=== PATIENT | female | born 1945 | race Caucasian/White ===

== ENCOUNTER → 2018-05-03 | Day surgery (SDC) | payer OTHER, MEDICARE ==
--- NOTE | 2018-05-03 11:52 | RAD REPORT ---
EXAM DESCRIPTION: US - Guided FNA Non Breast - 05/03/2018 10:32 am CLINICAL HISTORY: Thyroid nodule ICD E 04.2 COMPARISON: December 2017 FINDINGS: Risks, benefits and alternatives to the procedure were explained to the patient and inform ed consent obtained The skin and subcutaneous tissues anesthetized with lidocaine. Under sonographic guidance, five 25 gauge needle passes were obtained into the dominant nodule within the right lobe of the thyroid gland. Additionally several cc of brownish fluid was aspirated. Material given to pathology. The patient experienced no immediate complication IMPRESSION: Fine-needle aspiration of a dominant nodule within the right lobe of the thyroid gland
== END ==
LOC: FNA 09:45
PROVIDERS: ATTEND Otolaryngology
PROC: 0G9H3ZX Drainage of Right Thyroid Gland Lobe, Percutaneous Approach, Diagnostic (ICD-10-PCS; principal; 2018-05-03)
PROC: BG44ZZZ Ultrasonography of Thyroid Gland (ICD-10-PCS; 2018-05-03)
DX: E04.2 Nontoxic multinodular goiter (principal)
CPT/HCPCS: 88162

== ENCOUNTER 2020-06-28 15:35 | Emergency (ER) | payer OTHER, MEDICARE ==
--- NOTE | 2020-06-28 19:28 | RAD REPORT ---
EXAM DESCRIPTION: RAD - Chest Single View - 06/28/2020 7:09 pm CLINICAL HISTORY: Dyspnea;Cough Chest pain. COMPARISON: CHEST PA AND LAT 2 VIEW dated 10/05/2015 FINDINGS: Portable technique limits examination quality. The lungs are grossly clear. The heart is normal in size. No displaced fractures. IMPRESSION: No acute intrathoracic process suspected.
[2020-06-28] MEDS ORDERED: NA CHLORIDE 0.9% 1,000 ML ONE (19:32)
[2020-06-28] MEDS ORDERED: MORPHINE 4 MG/ML SYR ONE ×2 (19:32→21:23)
[2020-06-28] MEDS ORDERED: ONDANSETRON 4 MG/2 ML VIAL ONE (19:32)
[2020-06-28 19:37] LABS: Absolute Lymphocytes (CBC) 1.8 K/uL (0.7-4.9); Basophils % 0.8 % (0-1.3); Hematocrit 46.7 % (36.0-45.0); Lymphocytes % 27.5 % (15.3-44.8)
[2020-06-28 19:42] LABS: Protime INR 0.99
[2020-06-28 19:57] LABS: ALT/SGPT 30 U/L (12-78); AST/SGOT 18 U/L (15-37); Albumin 4.6 g/dL (3.4-5.0); Alkaline Phosphatase 66 U/L (45-117); BUN Blood Urea Nitrogen 15 mg/dL (7-18); Bicarbonate 29 mmol/L (21-32); Bilirubin Direct 0.2 mg/dL (0-0.2); Bilirubin Total 0.7 mg/dL (0.2-1.0); Glucose Level 103 mg/dL (74-106); Lipase 84 U/L (73-393); Magnesium 2.2 mg/dL (1.8-2.4); NT PRO-BNP 120 pg/mL (<125); Potassium 3.1 mmol/L (3.5-5.1); Protein, Total 9.3 g/dL (6.4-8.2); Sodium Level 136 mmol/L (136-145); Troponin (Emerg Dept Use Only) < 0.02 ng/mL (0.0-0.045)
--- NOTE | 2020-06-28 21:39 | RAD REPORT ---
EXAM DESCRIPTION: CT - Angio Aorta For Dissection - 06/28/2020 8:44 pm CLINICAL HISTORY: Chest pain radiating to the back. Cough;Pain COMPARISON: No comparisons TECHNIQUE: CT angiography of the aorta was performed with MIPs. All CT scans are performed using dose optimization technique as appropriate and may include automated exposure control or mA/KV adjustment according to patient size. FINDINGS: A left aortic arch is present with normal branching pattern of the great vessels.No acute aortic finding is seen such as aneurysm, penetrating ulcer or dissection. The celiac axis, SMA, BORA and renal arteries are patent. No evidence of pulmonary embolism. The lungs are clear. The liver demonstrates no focal mass or biliary dilatation.Cholelithiasis.The spleen, pancreas, adren al glands and kidneys are within normal limits for arterial phase imaging. No bowel obstruction, free fluid or abscess.Sigmoid diverticulosis coli without diverticulitis.No pat hologic enlarged lymphadenopathy identified. No fracture or worrisome bone lesion seen. 26 mm right thyroid lobe nodule. Tiny air bubble is present in urinary bladder. IMPRESSION: No acute aortic finding is demonstrated. Cholelithiasis. Tiny air bubble in the urinary bladder suggest urinalysis correlation. 26 mm right thyroid nodule.
--- NOTE | 2020-06-28 22:08 | ER ---
Nurse's Notes [facility] Name: Yamile Craig Age: 74 yrs Sex: Female : 1945 Arrival Date: 06/28/2020 Time: 15:40 Bed 15 Private MD: Sivakumar Hopper V Diagnosis: Zoster [herpes zoster] Presentation: 06/28 15:52 Chief complaint: Upper abdominal pain that radiates to left chest, left shoulder, and hb left upper back x 4 days. Pain is described as crampy or like a spasm. Coronavirus screen: At this time, the client does not indicate any symptoms associated with coronavirus-19. Ebola Screen: No symptoms or risks identified at this time. Initial Sepsis Screen: Does the patient meet any 2 criteria? No. Patient's initial sepsis screen is negative. Does the patient have a suspected source of infection? No. Patient's initial sepsis screen is negative. Risk Assessment: Do you want to hurt yourself or someone else? Patient reports no desire to harm self or others. Onset of symptoms was June 24, 2020. 15:52 Method Of Arrival: Ambulatory hb 15:52 Acuity: MADELINE 3 hb Historical: - Allergies: 15:54 No Known Allergies; hb - Immunization history:: Adult Immunizations up to date. - Social history:: Smoking status: Patient denies any tobacco usage or history of. Screenin:15 Abuse screen: Denies threats or abuse. Denies injuries from another. Nutritional aj1 screening: No deficits noted. Tuberculosis screening: No symptoms or risk factors identified. 22:33 Fall Risk None identified. aj1 Assessment: 17:42 Reassessment: Pt updated on delay in being seen by a provider. Pt does not appear to be dm5 upset at this time but reports that she is in pain and states that she understands. 19:01 Reassessment: LOGAN Musa at bedside to evaluate patient. aj1 19:02 Reassessment: Radiology at bedside to perform CXR. aj1 19:15 General: Appears in no apparent distress. comfortable, Behavior is calm, cooperative, aj1 appropriate for age. Pain: Complains of pain in back, chest and abdomen. Neuro: Level of Consciousness is awake, alert, obeys commands, Oriented to person, place, time, situation. Cardiovascular: Heart tones S1 S2 present Patient's skin is warm and dry. Respiratory: Airway is patent Respiratory effort is even, unlabored, Respiratory pattern is regular, symmetrical, Breath sounds are clear bilaterally. GI: Abdomen is non-distended, Bowel sounds present X 4 quads. Abd is soft and non tender X 4 quads. : No signs and/or symptoms were reported regarding the genitourinary system. EENT: No signs and/or symptoms were reported regarding the EENT system. Derm: No signs and/or symptoms reported regarding the dermatologic system. Skin is pink, warm \T\ dry. normal. Musculoskeletal: No signs and/or symptoms reported regarding the musculoskeletal system. Circulation, motion, and sensation intact. 20:07 Reassessment: Patient appears in no apparent distress at this time. No changes from aj1 previously documented assessment. Patient and/or family updated on plan of care and expected duration. Pain level reassessed. Patient is alert, oriented x 3, equal unlabored respirations, skin warm/dry/pink. 21:26 Reassessment: Patient appears in no apparent distress at this time. No changes from aj1 previously documented assessment. Patient and/or family updated on plan of care and expected duration. Pain level reassessed. Patient is alert, oriented x 3, equal unlabored respirations, skin warm/dry/pink. 22:33 Reassessment: Patient appears in no apparent distress at this time. No changes from aj1 previously documented assessment. Patient and/or family updated on plan of care and expected duration. Pain level reassessed. Patient is alert, oriented x 3, equal unlabored respirations, skin warm/dry/pink. Vital Signs: 15:52 BP 142 / 72; Pulse 85; Resp 16; Temp 97.2; Pulse Ox 100% on R/A; Pain 10/10; hb 20:00 BP 147 / 86; Pulse 96; Resp 20; Pulse Ox 100% on R/A; aj1 21:27 BP 138 / 72; Pulse 108; Resp 24; Pulse Ox 94% on R/A; aj1 22:33 BP 142 / 77; Pulse 98; Resp 20; Pulse Ox 95% on R/A; aj1 ED Course: 15:40 Patient arrived in ED. mr 15:40 Sivakumar Hopper MD is Private Physician. mr 15:54 Triage completed. hb 15:54 Arm band placed on right wrist. hb 18:25 Carroll Aquino MD is Attending Physician. angelia 18:34 Patsy Hill, RN is Primary Nurse. aj1 18:37 Luis Gu PA is PHCP. jmm 19:09 XRAY Chest (1 view) In Process Unspecified. EDMS 19:15 Patient maintains SpO2 saturation greater than 95% on room air. jp3 19:15 Initial lab(s) drawn, by me, sent to lab. First set of blood cultures drawn by me, Flu jp3 and/or RSV swab sent to lab. Inserted saline lock: 14 gauge in right antecubital area, using aseptic technique. Blood collected. 19:15 No provider procedures requiring assistance completed. aj1 19:25 Second set of blood cultures drawn by me, EKG done, by ED staff, reviewed by Luis FORD. 19:30 Placed in gown. Bed in low position. Call light in reach. Side rails up X 1. Warm jp3 blanket given. Verbal reassurance given. color television console monitor on. Pulse ox on. NIBP on. 20:44 CT Aorta for Dissection In Process Unspecified. EDMS 22:07 Sivakumar Hopper MD is Referral Physician. jmm 22:31 IV discontinued, intact, bleeding controlled, No redness/swelling at site. Pressure aj1 dressing applied. Administered Medications: 19:35 Drug: NS 0.9% 500 ml Route: IV; Rate: bolus; Site: right antecubital; jb4 22:31 Follow up: IV Status: Completed infusion; IV Intake: 500ml aj1 19:35 Drug: Zofran (Ondansetron) 4 mg Route: IVP; Site: right antecubital; jb4 22:30 Follow up: Response: No adverse reaction aj1 19:40 Drug: morphine 4 mg Route: IVP; Site: right antecubital; jb4 22:31 Follow up: Response: No adverse reaction aj1 20:16 Drug: NS 0.9% 1000 ml Route: IV; Rate: 125 ml/hr; Site: right antecubital; aj1 22:31 Follow up: IV Status: Completed infusion; IV Intake: 500ml aj1 21:13 Drug: morphine 4 mg Route: IVP; Site: right antecubital; aj1 22:30 Follow up: Response: No adverse reaction; Pain is decreased; RASS: Alert and Calm (0) aj1 Intake: 22:31 IV: 500ml; Total: 500ml. aj1 22:31 IV: 500ml; Total: 1000ml. aj1 Outcome: 22:07 Discharge ordered by . gabriel 22:34 Discharged to home ambulatory. aj1 22:34 Condition: good 22:34 Discharge instructions given to patient, Instructed on discharge instructions, follow up and referral plans. no drinking with medication, no driving heavy equipment, medication usage, Demonstrated understanding of instructions, follow-up care, medications, Prescriptions given X 3. 22:34 Patient left the ED. aj1 Signatures: Dispatcher [employer] EDMS Patsy Hill, RN RN aj1 Jessica Kinsey, RN RN dm5 Carroll Aquino MD MD cha Mickail, Joel, PA PA jmm Rivera, Mary mr Baxter, Heather, RN RN hb Bryson, James, RN RN jb4 Tex Savage jp3
--- NOTE | 2020-06-28 22:08 | EDPHYS ---
Physician Documentation [facility] Name: Yamile Craig Age: 74 yrs Sex: Female : 1945 Arrival Date: 06/28/2020 Time: 15:40 Bed 15 Private MD: Sivakumar Hopper V ED Physician Carroll Aquino HPI: 06/28 18:24 This 74 yrs old Female presents to ER via Ambulatory with complaints of Pain jmm All Over. 18:24 The patient or guardian reports chest pain that is located primarily in the anterior jmm chest wall, left. Onset: gradually, 4 day(s) ago. The pain radiates to left back. The chest pain is described as aching, a heaviness. Duration: The patient or guardian reports a single episode, that is still ongoing. Modifying factors: The symptoms are alleviated by nothing. the symptoms are aggravated by. This is a 74 year old female with a history of htn, hlp that presents to the ED with complaints of left sided chest pain which wraps around the left upper back. Pain has been constant for 4 days. Denies shortness of breath. . Historical: - Allergies: 15:54 No Known Allergies; hb - Immunization history:: Adult Immunizations up to date. - Social history:: Smoking status: Patient denies any tobacco usage or history of. ROS: 18:24 Constitutional: Negative for fever, chills, and weight loss. jmm 18:24 Cardiovascular: Positive for chest pain. 18:24 Abdomen/GI: Positive for abdominal pain. 18:24 Back: Positive for pain at rest. 18:24 All other systems are negative. Exam: 18:24 Constitutional: This is a well developed, well nourished patient who is awake, alert, jmm and in no acute distress. Head/Face: atraumatic. Eyes: EOMI, no conjunctival erythema appreciated ENT: Moist Mucus Membranes Neck: Trachea midline, Supple Chest/axilla: Normal chest wall appearance and motion. Cardiovascular: Regular rate and rhythm. No edema appreciated Respiratory: Normal respirations, no respiratory distress appreciated Abdomen/GI: Non distended, soft Back: Normal ROM 18:24 Skin: vesicular lesions on an erythematous base noted to the left upper thoracic region of the back. 18:24 Neuro: Orientation: is normal, Mentation: is normal, Memory: is normal. 18:24 Psych: Behavior/mood is pleasant, cooperative. Vital Signs: 15:52 BP 142 / 72; Pulse 85; Resp 16; Temp 97.2; Pulse Ox 100% on R/A; Pain 10/10; hb 20:00 BP 147 / 86; Pulse 96; Resp 20; Pulse Ox 100% on R/A; aj1 21:27 BP 138 / 72; Pulse 108; Resp 24; Pulse Ox 94% on R/A; aj1 22:33 BP 142 / 77; Pulse 98; Resp 20; Pulse Ox 95% on R/A; aj1 MDM: 18:25 Patient medically screened. angelia 21:45 Data reviewed: vital signs, nurses notes. ED course: Labs unremarkable. Pain has been jmm constant for 3 days with no elevated of troponin. Pain most likely due to herpes zoster. I do not suspect AMI at this time. Patient is advised to follow up with pcp and otherwise given strict return precautions. Patient understood and agrees with the plan of care. . 06/28 18:31 Order name: Basic Metabolic Panel; Complete Time: 20:08 [facility] 06/28 18:31 Order name: CBC with Diff; Complete Time: 20:08 [facility] 06/28 18:31 Order name: LFT's; Complete Time: 20:08 [facility] 06/28 18:31 Order name: Magnesium; Complete Time: 20:08 [facility] 06/28 18:31 Order name: NT PRO-BNP; Complete Time: 20:08 [facility] 06/28 18:31 Order name: PT-INR; Complete Time: 20:08 [facility] 06/28 18:31 Order name: Troponin (emerg Dept Use Only); Complete Time: 20:08 [facility] 06/28 18:31 Order name: XRAY Chest (1 view); Complete Time: 19:39 [facility] 06/28 18:31 Order name: Lipase; Complete Time: 20:08 [facility] 06/28 18:31 Order name: Blood Culture Adult (2) [facility] 06/28 18:31 Order name: Lactate; Complete Time: 20:08 [facility] 06/28 18:31 Order name: Flu; Complete Time: 20:08 [facility] 06/28 18:31 Order name: CT Aorta for Dissection; Complete Time: 21:42 [facility] 06/28 18:31 Order name: EKG; Complete Time: 18:32 [facility] 06/28 18:31 Order name: Cardiac monitoring; Complete Time: 19:31 [facility] 06/28 18:31 Order name: EKG - Nurse/Tech; Complete Time: 19:31 [facility] 06/28 18:31 Order name: IV Saline Lock; Complete Time: 19:31 [facility] 06/28 18:31 Order name: Labs collected and sent; Complete Time: 19:31 [facility] 06/28 18:31 Order name: O2 Per Protocol; Complete Time: : [facility] 06/28 18:31 Order name: O2 Sat Monitoring; Complete Time: 19:31 [facility] Administered Medications: 19:35 Drug: NS 0.9% 500 ml Route: IV; Rate: bolus; Site: right antecubital; jb4 22:31 Follow up: IV Status: Completed infusion; IV Intake: 500ml [facility] 19:35 Drug: Zofran (Ondansetron) 4 mg Route: IVP; Site: right antecubital; jb4 22:30 Follow up: Response: No adverse reaction [facility] 19:40 Drug: morphine 4 mg Route: IVP; Site: right antecubital; jb4 22:31 Follow up: Response: No adverse reaction [facility] 20:16 Drug: NS 0.9% 1000 ml Route: IV; Rate: 125 ml/hr; Site: right antecubital; aj1 22:31 Follow up: IV Status: Completed infusion; IV Intake: 500ml [facility] 21:13 Drug: morphine 4 mg Route: IVP; Site: right antecubital; aj1 22:30 Follow up: Response: No adverse reaction; Pain is decreased; RASS: Alert and Calm (0) [facility] Disposition: 06/29 09:02 Co-signature as Attending Physician, Carroll Aquino MD I agree with the assessment and [facility] plan of care. Disposition: 06/28/20 22:07 Discharged to Home. Impression: Zoster [herpes zoster]. - Condition is Stable. - Discharge Instructions: Shingles. - Prescriptions for Tylenol- Codeine #3 300-30 mg Oral Tablet - take 1 tablet by ORAL route every 6 hours As needed; 30 tablet. Valtrex 1 g Oral Tablet - take 1 tablet by ORAL route every 8 hours for 7 days; 21 tablet. Prednisone 20 mg Oral Tablet - take 3 tablet by ORAL route once daily for 5 days; 15 tablet. - Medication Reconciliation Form, Thank You Letter, Antibiotic Education, Prescription Opioid Use form. - Follow up: Sivakumar Hopper MD; When: 2 - 3 days; Reason: Recheck today's complaints, Continuance of care, Re-evaluation by your physician. Signatures: Dispatcher [employer] EDPatsy Douglas RN RN aj1 Carroll Aquino MD MD cha Mickail, Joel, PA PA jmm Baxter, Heather, RN RN hb Bryson, James, RN RN jb4 Corrections: (The following items were deleted from the chart) 06/28 22:34 22:07 06/28/2020 22:07 Discharged to Home. Impression: Zoster [herpes zoster]. aj1 Condition is Stable. Forms are Medication Reconciliation Form, Thank You Letter, Antibiotic Education, Prescription Opioid Use. Follow up: Sivakumar Hopper; When: 2 - 3 days; Reason: Recheck today's complaints, Continuance of care, Re-evaluation by your physician. gabriel
[2020-06-28 23:01] VITALS: TEMP 97.2
[2020-06-28 23:07] VITALS: BP 142/77; O2SAT 95
--- NOTE | 2020-06-29 07:23 | EKG ---
Test Date: 2020-06-28 Test Time: 19:37:41 Terrapin Fisher: BERNA MEASUREMENT RESULTS: Intervals: Rate: 96 OR: 148 QRSD: 94 QT: 404 QTc: 510 [place]: P: 68 OR: 148 QRS: 70 T: 35 INTERPRETIVE STATEMENTS: Normal sinus rhythm Prolonged QT Abnormal ECG Compared to ECG 06/16/2005 12:02:00 Prolonged QT interval now present Electronically Signed On 06-29-20 07:22:24 TRUCK TRAILER FINAL INSPECTOR by Neftali Gordon
== END 2020-06-28 22:34 | disposition home or self-care (01) ==
LOC: ER 15:35
DX: B02.9 Zoster without complications (principal)
CPT/HCPCS: 96361; 93005; 87040 ×2; 85025; 80048; 36415; 83735; 85610; 80076; 83605; 84484; 83690; 83880; 87804 ×2; 71275; 74175; 71045; 96375; 96374; 99285; Q9967; J7030; J2405

== ENCOUNTER 2022-09-21 10:40 | Day surgery (SDC) | payer OTHER, MEDICARE ==
--- NOTE | 2022-09-19 15:41 | RAD REPORT ---
EXAM DESCRIPTION: Rober Lala And Tabitha (2 Views)09/19/2022 3:34 pm CLINICAL HISTORY: Preop for an abdominal aortic gram COMPARISON: 2019 FINDINGS: The lungs appear clear of acute infiltrate. The heart is normal size IMPRESSION: No acute abnormalities displayed
[2022-09-19 15:44] LABS: Absolute Lymphocytes (CBC) 2.7 K/uL (0.7-4.9); Hematocrit 45.1 % (36.0-45.0); Lymphocytes % 43.1 % (15.3-44.8); MCV 94.8 fL (80-100); MPV 9.4 fL (7.6-11.3); RBC Red Blood Cell Count 4.76 M/uL (3.86-4.86)
[2022-09-19 15:47] LABS: Protime INR 0.97
[2022-09-19 15:58] LABS: Potassium 3.8 mmol/L (3.5-5.1)
--- NOTE | 2022-09-20 16:57 | EKG ---
Test Date: 2022-09-19 Test Time: 15:07:17 Litigation Docket Manager: ZAHIRA MEASUREMENT RESULTS: Intervals: Rate: 78 SC: 178 QRSD: 82 QT: 366 QTc: 417 [place]: P: 77 SC: 178 QRS: 74 T: 84 INTERPRETIVE STATEMENTS: Normal sinus rhythm Low voltage QRS Borderline ECG Compared to ECG 06/28/2020 19:37:41 Low QRS voltage now present Prolonged QT interval no longer present Electronically Signed On 09-20-22 16:54:23 CLIENT SUPPORT ANALYST by Baron Orta
[2022-09-21] MEDS ORDERED: NA CHLORIDE 0.9% 500 ML ONE (10:42)
[2022-09-21] MEDS ORDERED: LIDOCAINE 1% 20 ML MDV ONE (10:42)
[2022-09-21] MEDS ORDERED: HEPA 1000U/500MLS 2,000 UNIT/1,000 ML BAG IV ONE (10:42)
[2022-09-21] MEDS ORDERED: MIDAZOLAM HCL 2 MG/2 ML INJ ONE (10:45)
[2022-09-21] MEDS ORDERED: HEPARIN 5000 UNIT/ML 1 ML VIAL ONE (10:45)
[2022-09-21] MEDS ORDERED: FENTANYL CITR 100 MCG/2 ML ONE (10:45)
[2022-09-21] MEDS ORDERED: ASPIRIN 325 MG TAB ONE (10:46)
[2022-09-21] MEDS ORDERED: VERAPAMIL HCL 10 MG/4 ML VIAL IV ONE (10:46)
[2022-09-21] MEDS ORDERED: CLOPIDOGREL 75 MG TABLET ONE (10:46)
[2022-09-21] MEDS ORDERED: ATROPINE SULF 1 MG/10 ML SYR IV ONE (10:47)
[2022-09-21] MEDS ORDERED: HEPARIN 10,000 UNIT/10 ML VIAL IV ONE (10:47)
[2022-09-21] MEDS ORDERED: NITROGLYCERIN/D5W 25 MG/250 ML BTL IV ONE (10:48)
[2022-09-21 14:05] VITALS: O2SAT 96
[2022-09-21 14:36] VITALS: BP 112/64
--- NOTE | 2022-09-21 22:04 | OP ---
Date of Procedure: 09/21/2022 Surgeon: ZENA ZUNIGA Procedure Performed: Peripheral angiogram with runoff. Indication: Peripheral vascular disease. Access: Right radial artery 6-Ethiopian closed with TR band. Complications: None. Estimated Blood Loss: Bleeding less than 10 mL. Anesthesia: Total sedation time was 50 minutes. Used fentanyl and Versed. Description Of Procedure: After risks, benefits, and alternatives were explained, the patient agreed to the procedure and signed informed consent. The patient was brought into the cardiac catheterizat ion laboratory and prepped and draped in usual sterile fashion. Then I accessed right radial artery using pediatric micropuncture kit, placed 6-Ethiopian Slender sheath and took a 4-Ethiopian long pigtail ca theter into the distal aorta, performed distal aortogram and runoff and then removed the catheter and sheath, placed TR band with good hemostasis. Findings: 1.The distal aorta is patent. 2.Right common iliac artery is normal and the right internal iliac artery has 40% stenosis. Then, t he right profunda is patent, the right SFA ostial 50% and then mid diffuse 70% stenosis and 3 vessel runoff is with a slow flow below the knee. 3.The left common iliac artery has 30% stenosis. The left femoral artery is patent. Left profunda is patent and the left SFA has diffuse 45% to 50% stenosis and below the knee there is 3 vessel runof f with diffuse mild disease. Conclusion: Severe right superficial femoral artery stenosis as outlined above. Recommendation: Atherectomy and balloon angioplasty at [place]. /MODL Voice ID: [id number] Report ID: [id number]
== END 2022-09-21 14:36 | disposition home or self-care (01) ==
LOC: CCL 10:40
PROVIDERS: ATTEND Internal Medicine
DX: I70.223 Atherosclerosis of native arteries of extremities with rest pain, bilateral legs (principal); I25.10 Atherosclerotic heart disease of native coronary artery without angina pectoris; I65.23 Occlusion and stenosis of bilateral carotid arteries; I10 Essential (primary) hypertension; E78.2 Mixed hyperlipidemia; G62.9 Polyneuropathy, unspecified; K21.9 Gastro-esophageal reflux disease without esophagitis; E03.9 Hypothyroidism, unspecified; F17.210 Nicotine dependence, cigarettes, uncomplicated; Z79.899 Other long term (current) drug therapy; Z82.49 Family history of ischemic heart disease and other diseases of the circulatory system
CPT/HCPCS: 93005; 85025; 80048; 36415; 85610; 85730; 71046; 75630; 36245; C1893; J2001; J1644 ×2; J2250; J3010; J7040; 36200; 75625; 75716; J0461